=== PATIENT | male | born 1945 | race Caucasian/White ===

== ENCOUNTER → 2023-02-15 | Outpatient (CLI) | payer MEDICARE, OTHER, SELFPAY ==
--- NOTE | 2023-02-15 14:00 | CT_ITS ---
STUDY: CT ABDOMEN AND PELVIS WITH AND WITHOUT CONTRAST REASON FOR EXAM: Male, 77 years old. GROSS HEMATURIA for one month. RADIATION DOSAGE (If Supplied By Facility): CTDIvol = ( 26.62 ) mGy, DLP = ( 3268.86 ) mGycm TECHNIQUE: Transaxial images were obtained from the dome of the diaphragm to the symphysis pubis without oral contrast. IV 100mL Isovue-300 was administered. Sagittal and coronal images were reconstructed. Individualized dose optimization techniques were used for this CT. COMPARISON: None. FINDINGS: Minimal increased markings in the posterior aspect of the lingular segment of the left upper lobe suggestive of atelectasis. Coronary artery calcification. There is a 1.1 cm cyst in the anterior aspect of the left lobe of the liver in the region of the dome. A 1 cm cyst is also seen in the anterior aspect of the lateral segment of the left lobe of the liver. Diffuse fatty infiltration of the liver. Normal gallbladder and extrahepatic biliary system. Normal spleen. Normal pancreas. Normal bilateral adrenal glands. Normal right kidney. Normal left kidney. Normal visualized stomach. Normal small intestine. Normal colon. The appendix is visualized and appears normal. There is diffuse atherosclerotic calcification of the abdominal aorta, without a demonstrated aneurysm. Normal inferior vena cava. Normal retroperitoneum. Small capacity urinary bladder with the diffuse bladder wall thickening. There is enlargement of the prostate gland. Neoplastic measures 5.47 x 5.6 cm. Scattered calcifications are seen. This causes indentation of the bladder base. There is a small umbilical hernia containing fat. There is a 2.7 cm x 2.3 cm lipoma in the region of the insertion of the right quadrant muscle. There are diffuse degenerative changes of the visualized lumbar spine. CT/CT Abd/Pelvis W/WO Contrast IMPRESSION: Prostatic enlargement with indentation of the bladder base. Fatty infiltration of the liver. Small hepatic cysts. Electronically Signed: Zion Pradhan MD at 9:26 EDT ,
== END | disposition home or self-care (01) ==
LOC: CT 13:57
PROVIDERS: PCP Family Medicine; Referring Provider Urology; Visit Provider Urology
DX: N40.1 Benign prostatic hyperplasia with lower urinary tract symptoms (principal); R31.0 Gross hematuria
CPT/HCPCS: 74178; Q9967; A4216

== ENCOUNTER → 2023-02-22 | Outpatient (CLI) | payer MEDICARE, OTHER, SELFPAY ==
--- NOTE | 2023-02-22 | FLU_PTH ---
PATIENT: ROSEY RAMOS [facility] U#:[id number] AGE/SX: 77/M ROOM: RE02/22/[address]: Dr. Jeffry Angeles MD : 1945 BED: DIS: 02/22/2023 SPEC #: [id number] RECD: 02/22/23 15:00 STATUS: TRISTIN ADAM #: [id number] JEREMY: 02/22/23 00:[address]: Jeffry Angeles DEPT: CYTOLOGY RECD BY: Sandra Jay ENTERED: 02/23/23 07:11 SP TYPE: Fluid OTHR DR: Dr. Rai Garcia MD Tissues: Urine Procedures: Special Stain Group II Surgery Specimen Level IV Cytospin Fluid HEADER OPERATION: Not noted PRE-OP DIAGNOSIS: Gross hematuria TISSUE SUBMITTED: Urine for cytology DIAGNOSIS CYTOLOGY Urine for cytology (cytospin): Atypical urothelial cells present, Vannesa System Category III. See comment. AM:óscar 02/23/2023 COMMENT The Vannesa System for urine cytology diagnostic categorization was used in the evaluation of this case. CYTOLOGY STUDY Slides are reviewed. CYTOLOGY GROSS Received is 70 ml of hazy yellow fluid labeled with the patient's name and and designated per the requisition as urine. Submitted for cytology preparation. / óscar 02/22/2023 TC:? CPT: 43550
[2023-02-22 16:33] LABS: Cytology, Body Fluid / CSF SEE PATHOLOGY REPORT
== END | disposition home or self-care (01) ==
LOC: LABSPEC 16:25
PROVIDERS: PCP Family Medicine; Referring Provider Urology; Visit Provider Urology
DX: R31.0 Gross hematuria (principal)
CPT/HCPCS: 88108; 88305; 88313